=== PATIENT | female | born 1990 | race Caucasian/White ===

== ENCOUNTER 2018-05-05 15:27 | Outpatient (CLI) | payer MEDICAID | END 2018-05-05 19:27 | disposition home or self-care (01) | LOC: OBT 15:27 → L-D 15:29 → OBT 19:27 | DX: O99.413 Diseases of the circulatory system complicating pregnancy, third trimester (principal); I49.9 Cardiac arrhythmia, unspecified; Z3A.33 33 weeks gestation of pregnancy | CPT/HCPCS: 76818 ==

== ENCOUNTER 2018-05-09 10:08 | Outpatient (CLI) | payer MEDICAID | END 2018-05-09 12:23 | disposition home or self-care (01) | LOC: OBT 10:08 → L-D 10:08 → OBT 12:23 | DX: O99.413 Diseases of the circulatory system complicating pregnancy, third trimester (principal); Z3A.33 33 weeks gestation of pregnancy | CPT/HCPCS: 76815; 76818 ==

== ENCOUNTER 2018-05-12 09:42 | Outpatient (CLI) | payer MEDICAID | END 2018-05-12 12:45 | disposition home or self-care (01) | LOC: OBT 09:42 → L-D 09:45 → OBT 12:45 | DX: O99.413 Diseases of the circulatory system complicating pregnancy, third trimester (principal); Z3A.34 34 weeks gestation of pregnancy; I49.9 Cardiac arrhythmia, unspecified | CPT/HCPCS: 76818 ==